=== PATIENT | male | born 1975 | race American Indian/Alaskan Native ===

== ENCOUNTER 2019-06-23 10:03 | Emergency (ER) | payer SELFPAY ==
[2019-06-23 10:16] VITALS: BP 167/108
== END 2019-06-23 11:58 | disposition left against medical advice (07) ==
LOC: ED 10:03
DX: J00 Acute nasopharyngitis [common cold] (principal); Z53.21 Procedure and treatment not carried out due to patient leaving prior to being seen by health care provider